=== PATIENT | female | born 1955 | race Caucasian/White ===

== ENCOUNTER 2020-06-10 13:56 | Outpatient (CLI) | payer MEDICAID, SELFPAY ==
--- NOTE | 2020-06-10 14:06 | XR_ITS ---
WS: [id number] KUB, AP view, 06/10/2020 Clinical Data: NEPHROLITHIASIS Comparison: KUB, 01/03/2018. Findings: No abnormal intraabdominal masses are seen. There is no dilatated small bowel or evidence of obstruct ion. The calcification to the right of the inferior aspect of the L4 vertebral body has not changed. There are phleboliths in the true pelvis. There are clips in the right upper quadrant from a cholecystecto my. There is a large amount of fecal material throughout the colon. XR/XR KUB [id number] Impression: No change in possible right ureteral calculus.
== END 2020-06-10 13:57 | disposition home or self-care (01) ==
LOC: RAD 14:03
PROVIDERS: PCP Nurse Practitioner Family; Visit Provider Urology
DX: N20.0 Calculus of kidney (principal)
CPT/HCPCS: 74018

== ENCOUNTER → 2020-06-23 10:09 | Outpatient (BNVA) | payer MEDICAID, SELFPAY | PROVIDERS: PCP Nurse Practitioner Family; Visit Provider Nurse Practitioner Family | DX: E13.9 Other specified diabetes mellitus without complications (principal); Z51.81 Encounter for therapeutic drug level monitoring; E78.5 Hyperlipidemia, unspecified; I10 Essential (primary) hypertension; Z01.89 Encounter for other specified special examinations | CPT/HCPCS: 80053; 80061; 82043; 83036 ==

== ENCOUNTER → 2021-07-20 09:35 | Outpatient (BNVA) | payer MEDICAID, SELFPAY | PROVIDERS: PCP Nurse Practitioner Family; Visit Provider Nurse Practitioner Family | DX: E13.9 Other specified diabetes mellitus without complications (principal); E78.5 Hyperlipidemia, unspecified; I10 Essential (primary) hypertension; H65.90 Unspecified nonsuppurative otitis media, unspecified ear | CPT/HCPCS: 80053; 80061; 83036; 84443; 85025 ==

== ENCOUNTER → 2021-10-27 09:19 | Outpatient (BNVA) | payer MEDICAID, SELFPAY | PROVIDERS: PCP Nurse Practitioner Family; Visit Provider Nurse Practitioner Family | DX: E13.9 Other specified diabetes mellitus without complications (principal); I10 Essential (primary) hypertension | CPT/HCPCS: 80053; 80061; 83036; 84443; 85025 ==

== ENCOUNTER → 2022-01-04 09:50 | Outpatient (BNVA) | payer MEDICAID, SELFPAY | PROVIDERS: PCP Nurse Practitioner Family; Visit Provider Nurse Practitioner | DX: E13.9 Other specified diabetes mellitus without complications (principal); I10 Essential (primary) hypertension; E11.9 Type 2 diabetes mellitus without complications; E11.65 Type 2 diabetes mellitus with hyperglycemia; Z23 Encounter for immunization; E78.5 Hyperlipidemia, unspecified; N39.0 Urinary tract infection, site not specified | CPT/HCPCS: 80053; 80061; 81000; 83036; 84443; 87077; 87086; 87184 ==

== ENCOUNTER → 2022-04-18 09:11 | Outpatient (BNVA) | payer MEDICAID, SELFPAY | PROVIDERS: PCP Nurse Practitioner Family; Visit Provider Nurse Practitioner | DX: E11.65 Type 2 diabetes mellitus with hyperglycemia (principal); E55.9 Vitamin D deficiency, unspecified | CPT/HCPCS: 80053; 80061; 81000; 82043; 82306; 83036; 84443 ==

== ENCOUNTER 2022-05-10 08:56 | Outpatient (CLI) | payer MEDICAID, SELFPAY ==
--- NOTE | 2022-05-10 09:03 | MM_ITS ---
WS: [id number] BILATERAL SCREENING DIGITAL TOMOSYNTHESIS MAMMOGRAM WITH CAD HISTORY: Screening. COMPARISON: 03/02/2017 and 05/07/2012 Bilateral CC and MLO views with tomosynthesis and synthetic mammography submitted. Computer aided det ection analyzed. Breast composition: There are scattered areas of fibroglandular density. No suspicious masses, microc alcifications or architectural distortion. Benign calcifications LEFT breast. MM/[place] [id number] IMPRESSION: BI-RADS: 2-Benign FOLLOW UP: 1 Year Follow-up
== END 2022-05-10 08:57 | disposition home or self-care (01) ==
LOC: RAD 08:56
PROVIDERS: PCP Nurse Practitioner; Visit Provider Nurse Practitioner
DX: Z12.31 Encounter for screening mammogram for malignant neoplasm of breast (principal)
CPT/HCPCS: 77063; 77067

== ENCOUNTER → 2022-07-05 07:59 | Outpatient (BNVA) | payer MEDICAID, SELFPAY | PROVIDERS: PCP Nurse Practitioner; Visit Provider Nurse Practitioner | DX: E11.65 Type 2 diabetes mellitus with hyperglycemia (principal); Z79.4 Long term (current) use of insulin | CPT/HCPCS: 80053; 81000; 83036; 85025; 87077; 87086; 87184 ==

== ENCOUNTER → 2022-09-29 07:51 | Outpatient (BNVA) | payer MEDICAID, SELFPAY | PROVIDERS: PCP Nurse Practitioner; Visit Provider Nurse Practitioner | DX: E11.65 Type 2 diabetes mellitus with hyperglycemia (principal); Z79.4 Long term (current) use of insulin; I10 Essential (primary) hypertension | CPT/HCPCS: 80053; 80061; 83036; 85025 ==

== ENCOUNTER → 2022-12-21 09:25 | Outpatient (BNVA) | payer MEDICAID, SELFPAY | PROVIDERS: PCP Nurse Practitioner; Visit Provider Nurse Practitioner | DX: E11.65 Type 2 diabetes mellitus with hyperglycemia (principal); Z79.4 Long term (current) use of insulin | CPT/HCPCS: 80053; 80061; 83036; 84443; 85025 ==

== ENCOUNTER → 2023-03-16 08:29 | Outpatient (BNVA) | payer MEDICAID, SELFPAY | PROVIDERS: PCP Nurse Practitioner; Visit Provider Nurse Practitioner | DX: E11.65 Type 2 diabetes mellitus with hyperglycemia (principal); I10 Essential (primary) hypertension | CPT/HCPCS: 80053; 80061; 83036; 84443; 85025 ==

== ENCOUNTER → 2023-06-01 08:48 | Outpatient (BNVA) | payer MEDICAID, SELFPAY | PROVIDERS: PCP Nurse Practitioner; Visit Provider Nurse Practitioner | DX: E11.65 Type 2 diabetes mellitus with hyperglycemia (principal) | CPT/HCPCS: 80053; 80061; 83036; 84443; 85025 ==

== ENCOUNTER → 2023-06-05 14:27 | Outpatient (BNVA) | payer MEDICAID, SELFPAY | PROVIDERS: PCP Nurse Practitioner; Visit Provider Nurse Practitioner | DX: E11.65 Type 2 diabetes mellitus with hyperglycemia | CPT/HCPCS: 81000; 87077; 87086; 87184 ==

== ENCOUNTER 2023-07-11 10:22 | Outpatient (CLI) | payer MEDICAID, SELFPAY ==
--- NOTE | 2023-07-11 10:30 | MM_ITS ---
WS: [id number] BILATERAL 3D TOMOSYNTHESIS DIGITAL SCREENING MAMMOGRAPHY WITH CAD CLINICAL INFORMATION: Z12.31 - Encounter for screening mammogram for malignant ... HISTORY: Screening mammogram. No current complaints. COMPARISON: 05/10/2022 TECHNIQUE: Bilateral CC and MLO views. FINDINGS: Scattered fibroglandular densities bilaterally. No suspicious focal mass, asymmetry, calcifications, or architectural distortion. No evidence of malignancy. Incidental punctate and lucent centered calci fications. IMPRESSION: MM/[place] [id number] BI-RADS: 2-Benign FOLLOW UP: 1 Year Follow-up Recommend return to annual screening mammography.
== END 2023-07-11 10:23 | disposition home or self-care (01) ==
LOC: MOBLMAM 10:38
PROVIDERS: PCP Nurse Practitioner; Visit Provider Nurse Practitioner
DX: Z12.31 Encounter for screening mammogram for malignant neoplasm of breast (principal)
CPT/HCPCS: 77063; 77067

== ENCOUNTER → 2023-08-16 08:49 | Outpatient (BNVA) | payer MEDICAID, SELFPAY | PROVIDERS: PCP Nurse Practitioner; Visit Provider Nurse Practitioner | DX: E11.65 Type 2 diabetes mellitus with hyperglycemia (principal); E11.9 Type 2 diabetes mellitus without complications | CPT/HCPCS: 80053; 80061; 83036; 84443; 85025 ==

== ENCOUNTER → 2023-08-21 14:50 | Outpatient (BNVA) | payer MEDICAID, SELFPAY | PROVIDERS: PCP Nurse Practitioner; Visit Provider Nurse Practitioner | DX: E11.65 Type 2 diabetes mellitus with hyperglycemia (principal) | CPT/HCPCS: 81000 ==

== ENCOUNTER → 2023-11-23 08:19 | Outpatient (BNVA) | payer MEDICAID, SELFPAY | PROVIDERS: PCP Nurse Practitioner; Visit Provider Nurse Practitioner | DX: E11.65 Type 2 diabetes mellitus with hyperglycemia (principal); E11.9 Type 2 diabetes mellitus without complications | CPT/HCPCS: 80053; 80061; 83036; 84443; 85025 ==

== ENCOUNTER → 2023-11-27 13:52 | Outpatient (BNVA) | payer MEDICAID, SELFPAY | PROVIDERS: PCP Nurse Practitioner; Visit Provider Nurse Practitioner | DX: E11.65 Type 2 diabetes mellitus with hyperglycemia (principal) | CPT/HCPCS: 81015 ==

== ENCOUNTER → 2024-02-08 08:58 | Outpatient (BNVA) | payer MEDICAID, SELFPAY | PROVIDERS: PCP Nurse Practitioner; Visit Provider Nurse Practitioner | DX: E11.9 Type 2 diabetes mellitus without complications (principal); E11.65 Type 2 diabetes mellitus with hyperglycemia | CPT/HCPCS: 80053; 80061; 83036; 84443; 85025 ==

== ENCOUNTER → 2024-02-12 15:07 | Outpatient (BNVA) | payer MEDICAID, SELFPAY | PROVIDERS: PCP Nurse Practitioner; Visit Provider Nurse Practitioner | DX: E11.65 Type 2 diabetes mellitus with hyperglycemia (principal) | CPT/HCPCS: 81000; 82043 ==

== ENCOUNTER → 2024-04-18 08:23 | Outpatient (BNVA) | payer MEDICAID, SELFPAY | PROVIDERS: PCP Nurse Practitioner; Visit Provider Nurse Practitioner | DX: E11.9 Type 2 diabetes mellitus without complications | CPT/HCPCS: 80053; 80061; 83036; 85025 ==

== ENCOUNTER → 2024-07-03 08:24 | Outpatient (BNVA) | payer MEDICAID, SELFPAY | PROVIDERS: PCP Nurse Practitioner; Visit Provider Nurse Practitioner | DX: E11.9 Type 2 diabetes mellitus without complications (principal); E11.65 Type 2 diabetes mellitus with hyperglycemia; N39.0 Urinary tract infection, site not specified | CPT/HCPCS: 80053; 80061; 81000; 83036; 85025; 87077; 87086; 87184 ==

== ENCOUNTER 2024-08-13 13:24 | Outpatient (CLI) | payer MEDICAID, SELFPAY ==
--- NOTE | 2024-08-13 13:40 | MM_ITS ---
WS: [id number] BILATERAL 3D TOMOSYNTHESIS DIGITAL SCREENING MAMMOGRAPHY WITH CAD CLINICAL INFORMATION: SCREENING HISTORY: Screening mammogram. No current complaints. COMPARISON: 2023 TECHNIQUE: Bilateral CC and MLO views. FINDINGS: Scattered fibroglandular densities bilaterally. No suspicious focal mass, asymmetry, calcifications, or architectural distortion. No evidence of malignancy. Punctate and lucent centered calcifications. MM/MM scr tomosynthesis [id number] IMPRESSION: DENSITY: There are scattered areas of fibroglandular density. BI-RADS: 2 - Benign. FOLLOW UP: 1 Year Follow-up Recommend return to annual screening mammography.
== END 2024-08-13 13:25 | disposition home or self-care (01) ==
PROVIDERS: PCP Nurse Practitioner; Visit Provider Nurse Practitioner
DX: Z12.31 Encounter for screening mammogram for malignant neoplasm of breast (principal); R92.323 Mammographic fibroglandular density, bilateral breasts; R92.1 Mammographic calcification found on diagnostic imaging of breast
CPT/HCPCS: 77063; 77067

== ENCOUNTER → 2024-10-01 09:00 | Outpatient (BNVA) | payer MEDICAID, SELFPAY | PROVIDERS: PCP Nurse Practitioner; Visit Provider Nurse Practitioner | DX: E11.9 Type 2 diabetes mellitus without complications (principal); E11.65 Type 2 diabetes mellitus with hyperglycemia | CPT/HCPCS: 80053; 80061; 81003; 83036; 85025; 87086 ==

== ENCOUNTER → 2024-12-11 08:48 | Outpatient (BNVA) | payer MEDICAID, SELFPAY | PROVIDERS: PCP Nurse Practitioner; Visit Provider Nurse Practitioner | DX: E11.9 Type 2 diabetes mellitus without complications (principal); E11.65 Type 2 diabetes mellitus with hyperglycemia | CPT/HCPCS: 80053; 80061; 83036; 84443; 85025 ==

== ENCOUNTER → 2024-12-19 12:17 | Outpatient (BNVA) | payer MEDICAID, SELFPAY | PROVIDERS: PCP Nurse Practitioner; Visit Provider Nurse Practitioner | DX: E11.65 Type 2 diabetes mellitus with hyperglycemia (principal) | CPT/HCPCS: 81000; 82043 ==

== ENCOUNTER → 2025-02-03 09:04 | Outpatient (BNVA) | payer MEDICAID, SELFPAY | PROVIDERS: PCP Nurse Practitioner; Referring Provider Nurse Practitioner; Visit Provider Internal Medicine Cardiovascular Disease | DX: I25.10 Atherosclerotic heart disease of native coronary artery without angina pectoris (principal); I10 Essential (primary) hypertension; E78.5 Hyperlipidemia, unspecified; E11.65 Type 2 diabetes mellitus with hyperglycemia; Z79.84 Long term (current) use of oral hypoglycemic drugs; Z79.85 Long-term (current) use of injectable non-insulin antidiabetic drugs; Z98.61 Coronary angioplasty status; Z87.891 Personal history of nicotine dependence; R06.02 Shortness of breath; R07.9 Chest pain, unspecified | CPT/HCPCS: 93005; 99204 ==

== ENCOUNTER 2025-02-12 07:10 | Outpatient (CLI) | payer MEDICAID, SELFPAY ==
[2025-02-12 07:43] VITALS: BMI 23.7
--- NOTE | 2025-02-12 07:45 | ECG_ITS ---
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 Interpretive Statements Findings: The patient's resting blood pressure was 134/83 mmHg with a resting heart rate of 87 bpm. Patient then exercised on the treadmill using the Justin protocol to reach a maximum heart rate of 146 bpm which was 97% of the patient's maximal predicted heart rate reaching 7 METS. Patient exercised for total of 4 minutes and 26 seconds. The patient's maximum blood pressure was 175/86. At the end of recovery patient's blood pressure was 146/85 mmHg with a heart rate of 85 bpm. The baseline EKG showed normal sinus rhythm with a heart rate of 87 bpm and evidence of a possible old anteroseptal myocardial infarction. There are also nonspecific T wave flattening abnormalities. No significant ST or T wave changes to meet criteria for inducible ischemia through the stress test and in recovery. No arrhythmias occurred. CONCLUSION: 1. Exercise capacity was below average for age. 2. Heart rate response was appropriate. 3. Blood pressure response was appropriate. 4. No symptoms of angina during exercise. 5. Electrocardiogram portion of the stress test without evidence of ischemia. Electronically Signed On 02-12-2025 19:36:10 UNIFORM ATTENDANT by Yariel Koroma M.D. [email or web address]
--- NOTE | 2025-02-12 07:45 | NMCV_ITS ---
NM jose perf SPECT r/s* [id number] France Leung Age: 69 Gender: F : 1955 Exam Date: 02/12/2025 08:38 Ordering Phys: Yariel Koroma MD ([email or web address]) Technologist: RAMON Montoya Exam Location: [facility] Indications: CP STRESS TEST Please see separate stress test report in [facility] for full findings IMAGE PROTOCOL Rest/Stress 1 Exercise Day Radiopharmaceutical Dose (mCi) Administration Site Administered by Rest: Tc-99m 10.4 IV Erendira Mary, PHYSICAL TESTING SUPERVISOR Sestamibi Stress:Tc-99m 32.4 IV Erendira Krusegle, PHYSICAL TESTING SUPERVISOR Sestamibi Rest: 12-Feb-2025 60 Discovery 630 Stress: 12-Feb-2025 30 Discovery 630 0.4mg Lexiscan. Images obtained in supine and prone position. SPECT RESULTS Technical Quality: Good Raw Data Analysis: Normal Image Corrections: No attenuation or motion correction applied Summed Stress Score: 0 Summed Rest Score: 0 Summed Difference Score: 0 PERFUSION FINDINGS SPECT images demonstrate homogeneous tracer distribution throughout the myocardium. FUNCTIONAL RESULTS (calculated via Gated SPECT) Stress Image LV EF (%): 93 Stress EDV (mL):41 TID: 0.73 Stress ESV (mL):3 FUNCTIONAL FINDINGS: There is normal left ventricular systolic function. IMPRESSIONS Myocardial perfusion imaging is normal. There is normal left ventricular systolic function, EF >75%. Yariel Koroma MD, FACC (Electronically Signed) Final Date: 12 February 2025 18:25 S
[2025-02-12 09:52] VITALS: BP 146/85; PULSE 89
== END 2025-02-12 07:11 | disposition home or self-care (01) ==
LOC: CDL 07:11
PROVIDERS: PCP Nurse Practitioner; Visit Provider Internal Medicine Cardiovascular Disease
DX: R07.9 Chest pain, unspecified (principal); I25.10 Atherosclerotic heart disease of native coronary artery without angina pectoris
CPT/HCPCS: 36415; 78452; 93017; A9500

== ENCOUNTER 2025-02-21 07:24 | Outpatient (CLI) | payer MEDICAID, SELFPAY ==
--- NOTE | 2025-02-21 07:45 | USCV_ITS ---
France Leung Age: 69 Gender: F : 1955 Exam Date: 02/21/2025 07:30 Ordering Phys: Yariel Koroma MD ([email or web address]) Technologist: DANGELO Exam Location: [facility] [place] [facility] Indication: SoB BP: 120 / 72 HR: 81 Rhythm: Sinus Technical Quality: Adequate MEASUREMENTS (Male / Female) Normal Values 2D ECHO LV Diastolic Diameter PLAX 5.0 cm 4.2 - 5.9 / 3.9 - 5.3 cm IVS Diastolic Thickness 0.7 cm 0.6 - 1.0 / 0.6 - 0.9 cm IVS Systolic Thickness 0.8 cm LVPW Diastolic Thickness 0.8 cm 0.6 - 1.0 / 0.6 - 0.9 cm LVPW Systolic Thickness 0.8 cm LVOT Diameter 2.0 cm LV Ejection Fraction 2D Teich 38.2 % LV Ejection Fraction MOD 4C 63.7 % LV Ejection Fraction MOD 2C 53.9 % LV Ejection Fraction 2C AL 48.6 % LA Diameter 3.0 cm RA Systolic Volume 4C AL 23.3 ml RA Systolic Volume 4C MOD 22.4 ml LA Sys Volume AL 25.8 cm cubed LA Sys Volume Index AL 15.6 cm cubed/m squared Aorta at Sinotubular Diameter 2.8 cm IVC Diameter 1.2 cm M-MODE LA Ao Ratio MM 1.7 AV Cusp Separation MM 1.5 cm DOPPLER AV Peak Velocity 139.0 cm/s LVOT Peak Velocity 119.0 cm/s AV Area Cont Eq vti 2.7 cm squared AV Area Cont Eq pk 2.7 cm squared MV Peak Velocity 133.0 cm/s MV Area PHT 4.6 cm squared Mitral E to A Ratio 0.5 TR Peak Velocity 98.0 cm/s TR Peak Gradient 3.8 mmHg TV Peak E Velocity 53.0 cm/s PV Peak Velocity 91.0 cm/s FINDINGS Left Ventricle Normal left ventricular size, systolic function and wall thickness with no regional wall motion abnormality. Left ventricular ejection fraction is 63%. Normal left ventricular diastolic function. Right Ventricle Normal right ventricular size and systolic function. Right Atrium Normal right atrial size. Left Atrium Normal left atrial size. IA Septum Normal appearance of the interatrial septum. Mitral Valve Moderate thickening of the anterior mitral valve leaflet consistent with a myxomatous mitral valve. Trace mitral valve regurgitation. No stenosis. Severe mitral annular calcification. Aortic Valve Normal aortic valve structure. No aortic valve stenosis or regurgitation. Tricuspid Valve Unable to measure pulmonary artery systolic pressure due to lack of tricuspid valve regurgitation jet. Normal tricuspid valve structure. No tricuspid valve stenosis or regurgitation. Pulmonic Valve Normal pulmonic valve structure. No pulmonic valve stenosis or regurgitation. Pericardium No pericardial effusion. Aorta Normal diameter of the aortic root and ascending thoracic aorta. IVC Normal IVC diameter. CONCLUSIONS Normal left ventricular size, systolic function and wall thickness with ejection fraction of 63%. Normal left ventricular diastolic function Normal right ventricular size and systolic function. 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 Trace mitral valve regurgitation. No stenosis. Severe mitral annular calcification. Yariel Koroma MD, FACC (Electronically Signed) Final Date: 27 February 2025 13:52 S
== END 2025-02-21 07:25 | disposition home or self-care (01) ==
LOC: RAD 07:25
PROVIDERS: PCP Nurse Practitioner; Visit Provider Internal Medicine Cardiovascular Disease
DX: R06.02 Shortness of breath (principal); R93.1 Abnormal findings on diagnostic imaging of heart and coronary circulation; I34.81 Nonrheumatic mitral (valve) annulus calcification
CPT/HCPCS: 93306

== ENCOUNTER → 2025-03-10 08:41 | Outpatient (BNVA) | payer MEDICAID, SELFPAY | PROVIDERS: PCP Nurse Practitioner; Visit Provider Nurse Practitioner | DX: E11.65 Type 2 diabetes mellitus with hyperglycemia (principal); E11.9 Type 2 diabetes mellitus without complications; N39.0 Urinary tract infection, site not specified | CPT/HCPCS: 80053; 80061; 81000; 83036; 85025; 87086 ==

== ENCOUNTER 2025-03-19 14:42 | Outpatient (CLI) | payer MEDICAID, SELFPAY ==
--- NOTE | 2025-03-19 15:00 | XR_ITS ---
WS: [id number] SCREENING DEXA SCAN [facility] CLINICAL INFORMATION: Z78.0 - Asymptomatic menopausal state COMPARISON: None. FINDINGS: The L1-L4 bone mineral density measures 0.887. This corresponds to a T score score of -2.6 and Z score of -0.8. Left femoral neck bone mineral density measures 0.646 g/cm2. This corresponds to a T score of -2.9 and Z score of -1.3. Right femoral neck bone mineral density measures 0.685 g/cm2. This corresponds to a T score -2.6of and Z score of -0.9. Mean femoral neck bone mineral density measures 0.666 g/cm2. This corresponds to a T score of -2.7 and Z score of -1.1. XR/XR DEXA axial skeleton* 19474 IMPRESSION: Osteoporosis lumbar spine. Osteoporosis femoral necks. Patient's FRAX calculated 10 year probability for major osteoporotic fracture i s 19.0% and osteoporotic hip fracture is 6.7%.
== END 2025-03-19 14:43 | disposition home or self-care (01) ==
LOC: RAD 14:43
PROVIDERS: PCP Nurse Practitioner; Visit Provider Nurse Practitioner
DX: Z13.820 Encounter for screening for osteoporosis (principal); Z78.0 Asymptomatic menopausal state; M81.0 Age-related osteoporosis without current pathological fracture
CPT/HCPCS: 77080